=== PATIENT | female | born 1960 | race Caucasian/White ===

== ENCOUNTER 2016-05-02 13:08 | Inpatient (IN) | payer OTHER ==
[~2016-05-02] VITALS: Ht 162.6 cm; Wt 118.9 kg
[~2016-05-02 13:08] MED LIST: CETI10 PO; HYDR-3288 PO; LOSA25TA PO; LOVA40TA PO; METF850T PO; ROPI0.5T PO; TRIA37.5 PO; ZOLO50TA PO
[2016-05-04] MEDS ORDERED: VITA1000 PO (10:51)
[2016-05-04] MEDS ORDERED: HYDR-3583 PO (10:51)
[2016-05-04] MEDS ORDERED: MIRA25TA PO (11:02)
[2016-05-04] MEDS ORDERED: METR0.752 TOPICAL (11:02)
[2016-05-04] MEDS ORDERED: FLUT1SPR5 EACH NARE (11:02)
[2016-05-04] MEDS ORDERED: MONT10TA4 PO (11:02)
[2016-05-04] MEDS ORDERED: OMEP20TA PO (11:02)
[2016-05-04] MEDS ORDERED: BACTOIN EACH NARE (11:02)
[2016-05-07] MEDS ORDERED: METOPROLOL TARTRATE 25 MG TAB PO PRN (05:30)
[2016-05-07] MEDS ORDERED: LACTATED RINGER'S 1000 ML IV SCH (05:30)
[2016-05-07] MEDS ORDERED: SODIUM CHLORID 0.9% 500 ML IV SCH (05:30)
[2016-05-07] MEDS ORDERED: INSULIN HUMAN REGULAR 1,000 UNITS/10 ML VIAL SQ PRN (05:30)
[2016-05-07] MEDS ORDERED: ROPIVACAINE PERI-ARTICULAR INJECTION. PERIART SCH ×5 (05:45)
[2016-05-07] MEDS ORDERED: VANCOMYCIN 1000 MG/NS 250 ML (for <70 kg) IV SCH ×2 (05:45)
[2016-05-07] MEDS ORDERED: SODIUM CHLORIDE 0.9% IV SCH (05:45)
[2016-05-07] MEDS ORDERED: EXPAREL PERI-ARTICULAR INJECTION (TOTAL VOL. 60 ML) P-ARTICULR SCH ×2 (05:45)
[2016-05-07] MEDS ORDERED: TRANEXAMIC ACID IV SCH (05:45)
[2016-05-07] MEDS: POVIDONE IODINE 7.5% SCRUB 118 ML BOTTLE TOP SCH (05:45)
[2016-05-07] MEDS ORDERED: TRANEXAMIC PERI-ARTICULAR 3,000 MG/NS 100 ML P-ARTICULR SCH ×2 (05:45)
[2016-05-07] MEDS: CHLORHEXIDINE GLUCONATE 4% SOLN 120 ML BTL TOP SCH (05:45)
[2016-05-07] MEDS ORDERED: DEXAMETHASONE SOD PHOS 20 MG/5 ML VIAL IV PUSH SCH (05:45)
[2016-05-07] MEDS ORDERED: ceFAZolin 2 GM PREMIX 50 ML IV SCH (05:45)
[2016-05-07 05:54] VITALS: BP 109/59; PULSE 58; RESP 16; TEMP 97.5; O2SAT 98
[2016-05-07] MEDS ORDERED: MIDAZOLAM HCL 5 MG/5 ML VIAL ONE (06:32)
[2016-05-07] MEDS ORDERED: FAMOTIDINE 20 MG/2 ML VIAL ONE (06:42)
[2016-05-07] MEDS ORDERED: METOCLOPRAMIDE HCL 10 MG/2 ML VIAL ONE (06:43)
[2016-05-07] MEDS ORDERED: ACETAMINOPHEN 1000 MG/100 ML VIAL IV ONE (06:51)
[2016-05-07] MEDS ORDERED: fentaNYL CITRATE 250 MCG/5 ML AMP ONE (06:51)
[2016-05-07] MEDS ORDERED: HYDR-3288 PO (06:59)
[2016-05-07] MEDS ORDERED: ENOX40P SQ (06:59)
[2016-05-07] MEDS ORDERED: ALUMINUM/MAGNESIUM/SIMETH 30 ML CUP PO PRN (07:00)
[2016-05-07] MEDS ORDERED: ACETAMINOPHEN/HYDROcodone 325 MG/7.5 MG TAB PO PRN ×2 (07:00)
[2016-05-07] MEDS ORDERED: Post-op Orders (for Pharmacy) MISC XX ONE (07:00)
[2016-05-07] MEDS ORDERED: diphenhydrAMINE HCL 50 MG/ML VIAL IV PRN (07:00)
[2016-05-07] MEDS ORDERED: MORPHINE SULFATE 4 MG/ML INJ IV PUSH PRN (07:00)
[2016-05-07] MEDS ORDERED: ZOLPIDEM TARTRATE 5 MG TAB PO PRN (07:00)
[2016-05-07] MEDS ORDERED: NALOXONE HCL 0.4 MG/ML AMP IV PRN (07:00)
[2016-05-07] MEDS ORDERED: MAGNESIUM HYDROXIDE SUSP 30 ML CUP PO PRN (07:00)
[2016-05-07] MEDS ORDERED: BISACODYL 10 MG SUPP PR PRN (07:00)
[2016-05-07] MEDS ORDERED: ASPI81CH37 CHEW (07:01)
[2016-05-07] MEDS ORDERED: GENTAMICIN SULFATE 80 MG/2 ML VIAL IRRIGATION ONE (07:44)
[2016-05-07] MEDS ORDERED: BUPIVACAINE LIPOSOME PF 1.3% 20 ML VIAL ONE (07:50)
[2016-05-07] MEDS: TRIAMTERENE/HCTZ 37.5 MG/25 MG TAB PO SCH (09:00)
[2016-05-07] MEDS ORDERED: DO NOT ADM ANY ANTICOAGULANT DRUGS XX PRN (09:02)
[2016-05-07] MEDS ORDERED: *morphine SULFATE 8 MG/ML PERIprocedure ONLY ONE ×2 (09:17→09:55)
[2016-05-07] MEDS ORDERED: *MEPERIDINE 25 MG INJ VIAL PERIprocedural Use ONLY ONE (09:19)
[2016-05-07] MEDS ORDERED: SODIUM CHLORIDE 0.9% FLUSH 10 ML FLUSH IV FLUSH PRN (09:30)
[2016-05-07] MEDS: metFORMIN HCL 850 MG TAB PO SCH ×2 (09:35→11:09)
[2016-05-07] MEDS: SODIUM CHLOR 0.9% 1000 ML INJ 1,000 ML IV SCH ×2 (09:40→22:38)
--- NOTE | 2016-05-07 09:54 | RADRPT ---
EXAM DATE/TIME: 05/07/2016 09:27 [place] COMPARISON: No previous studies available for comparison. INDICATIONS : Post op right total knee. MEDICAL HISTORY : Unobtainable. SURGICAL HISTORY : Unobtainable. ENCOUNTER: Initial ACUITY: 1 day PAIN SCORE: Non-responsive. LOCATION: Right knee. FINDINGS: AP and lateral views of the knee following arthroplasty reveals a prosthesis in anatomic alignment. F racture is not appreciated. Surgical drain is evident CONCLUSION: Status post total knee arthroplasty. Bryson Self MD FACR Board Certified Radiologist. This report was verified electronically.
[2016-05-07] MEDS: PANTOPRAZOLE SOD 20 MG DELAYED RELEASE TAB PO SCH (10:00)
[2016-05-07] MEDS: TOLTERODINE TARTRATE 2 MG CAP LA PO SCH (10:00)
[2016-05-07] MEDS: SODIUM CHLORIDE 0.9% FLUSH 10 ML FLUSH IV FLUSH SCH ×2 (10:00→22:37)
[2016-05-07 10:54] VITALS: BP 155/99; PULSE 56; RESP 18; TEMP 95.9; O2SAT 99
[2016-05-07] MEDS: LOSARTAN 25 MG TAB PO SCH (11:09)
[2016-05-07] MEDS: SERTRALINE HCL 50 MG TAB PO SCH (11:09)
[2016-05-07 15:03] VITALS: BP 138/66; PULSE 73; RESP 18; TEMP 98.2; O2SAT 100
[2016-05-07] MEDS ORDERED: PROPOFOL 200 MG/20 ML AMP IV ONE (15:11)
[2016-05-07] MEDS ORDERED: ONDANSETRON HCL 4 MG/2 ML VIAL IV PUSH ONE (15:11)
[2016-05-07] MEDS ORDERED: NEOSTIGMINE 3 MG/3 ML SYR IV ONE (15:11)
[2016-05-07] MEDS ORDERED: LACTATED RINGER'S 1000 ML INJ 1,000 ML IV ONE (15:12)
[2016-05-07] MEDS: oxyCODONE/ACETAMINOPHEN 10 MG/325 MG TAB PO PRN ×2 (15:36→22:32)
[2016-05-07 20:30] VITALS: BP 142/67; PULSE 66; RESP 17; TEMP 98; O2SAT 96
[2016-05-08] VITALS: BP 125/67; PULSE 67; RESP 17; TEMP 98.4; O2SAT 96
[2016-05-08 04:00] VITALS: BP 106/55; PULSE 60; RESP 17; TEMP 97.2; O2SAT 97
[2016-05-08] MEDS: CHLORHEXIDINE GLUCONATE 4% SOLN 120 ML BTL TOP SCH (05:45)
[2016-05-08] MEDS: POVIDONE IODINE 7.5% SCRUB 118 ML BOTTLE TOP SCH (05:45)
[2016-05-08 06:09] LABS: HEMATOCRIT 28.1 % (35.0-46.0); MEAN CELL VOLUME 86.6 FL (80.0-100.0); MEAN CORPUSCULAR HEMOGLOBIN 28.2 PG (27.0-34.0); MEAN CORPUSCULAR HGB CONC 32.6 % (32.0-36.0); PLATELET COUNT 242 TH/MM3 (150-450); RED BLOOD COUNT 3.25 MIL/MM3 (4.00-5.30); RED CELL DISTRIBUTION WIDTH 14.1 % (11.6-17.2); REVIEW FLAG FINAL; WHITE BLOOD COUNT 11.7 TH/MM3 (4.0-11.0)
[2016-05-08 06:36] LABS: BICARBONATE 28.1 MEQ/L (21.0-32.0); POTASSIUM 3.8 MEQ/L (3.5-5.1)
[2016-05-08] MEDS: PANTOPRAZOLE SOD 20 MG DELAYED RELEASE TAB PO SCH (07:02)
[2016-05-08] MEDS: ENOXAPARIN SODIUM 40 MG/0.4 ML SYRINGE SQ SCH (07:02)
[2016-05-08] MEDS: TRIAMTERENE/HCTZ 37.5 MG/25 MG TAB PO SCH (07:02)
[2016-05-08] MEDS: LOSARTAN 25 MG TAB PO SCH (07:02)
[2016-05-08] MEDS: TOLTERODINE TARTRATE 2 MG CAP LA PO SCH (07:02)
[2016-05-08] MEDS: metFORMIN HCL 850 MG TAB PO SCH ×2 (07:02→18:00)
[2016-05-08] MEDS: SERTRALINE HCL 50 MG TAB PO SCH (07:03)
[2016-05-08] MEDS: SODIUM CHLORIDE 0.9% FLUSH 10 ML FLUSH IV FLUSH SCH ×2 (07:03→21:00)
[2016-05-08] MEDS: oxyCODONE/ACETAMINOPHEN 10 MG/325 MG TAB PO PRN ×4 (07:04→20:52)
[2016-05-08 08:00] VITALS: BP 126/58; PULSE 55; RESP 20; TEMP 97.8; O2SAT 93
--- NOTE | 2016-05-08 08:24 | PD.ORT.PN ---
Subjective Post Op Day #: 1 Subjective Remarks pain in knee. difficulty moving leg. did not do much in PT yesterday. Objective Vitals Vital Signs Date Time Temp Pulse Resp B/P Pulse Ox O2 Delivery O2 Flow Rate FiO2 05/08/16 04:00 97.2 60 17 106/55 97 05/08/16 00:00 98.4 67 17 125/67 96 05/07/16 20:30 98.0 66 17 142/67 96 05/07/16 15:03 98.2 73 18 138/66 100 05/07/16 10:54 95.9 56 18 155/99 99 05/07/16 10:15 97.5 66 16 151/77 93 Nasal Cannula 3.5 05/07/16 10:00 61 16 151/69 98 Nasal Cannula 3.5 05/07/16 09:45 51 15 144/76 99 Nasal Cannula 3.5 05/07/16 09:30 59 15 152/74 97 Simple Mask 6 05/07/16 09:20 14 89 Simple Mask 6 05/07/16 09:15 57 15 159/72 97 Nasal Cannula 4 05/07/16 09:07 97.6 58 15 164/81 96 Simple Mask 6 I/O 05/07/16 05/07/16 05/07/16 05/08/16 05/08/16 05/08/16 07:00 15:00 23:00 07:00 15:00 23:00 Intake Total 2120 ml 240 ml 240 ml Output Total 1225 ml 950 ml 1400 ml Balance 895 ml -710 ml -1160 ml Intake Oral 720 ml 240 ml 240 ml IV Total 200 ml Other 1200 ml Output Urine Total 1175 ml 950 ml 1400 ml Estimated Blood Loss 50 ml # Voids 0 # Bowel Movements 0 0 0 Result Diagram: 05/08/16 0530 05/08/16 0530 Objective Remarks in bed, nad dressing c/d/i neg homans nvi Assessment & Plan Ortho Post Op Day #: 1 Problem List: Assessment and Plan s/p R TKA wbat daily dressing changes lovenox d/c planning home with [facility] and pt rx in chart f/up dr. olson 2 weeks Haile Sandoval May 08, 2016 08:24
--- NOTE | 2016-05-08 08:26 | HHI.DCPOC ---
Discharge Care Plan Diagnosis: (1) Primary localized osteoarthrosis, lower leg Your Health Problems Are: Difficulty with ADL Goals to Promote Your Health * To prevent worsening of your condition and complications * To maintain your health at the optimal level Directions to Meet Your Goals Take your medications as prescribed Follow your dietary instruction Follow activity as directed Keep your appointments as scheduled Take your immunizations and boosters as scheduled If your symptoms worsen call your PCP, if no PCP go to Urgent Care Center or Emergency Room Smoking is Dangerous to Your Health. Avoid second hand smoke Call the 24-hour hour crisis hotline for domestic abuse at Haile Sandoval May 08, 2016 08:26
--- NOTE | 2016-05-08 08:27 | HHI.FF ---
Face to Face Verification Diagnosis: (1) Primary localized osteoarthrosis, lower leg Physical Therapy Gait training, Safety evaluation, Transfer training, bed to chair Knee: Total knee, Protocol: Right, Full weight bearing Right LE Weight Bearing: WB as tolerated Nursing RN: 3 days/week x 2 weeks Nursing: Lul teaching, Dressing changes Dressing Changes: Daily dressing change I have seen patient Magdalena Fenton on 05/08/16. My clinical findings support the need for the requested home health care services because: Limited ability to care for self High risk of falls I certify that my clinical findings support that this patient is homebound because: Post-op weakness Unsteady gait/balance Haile Sandoval May 08, 2016 08:27
[2016-05-08] MEDS ORDERED: WALKER WHEELS/F1 MIS (08:28)
[2016-05-08] MEDS ORDERED: CPMMACHINE (08:28)
[2016-05-08] MEDS ORDERED: COMMODE 3-IN-11 MIS (08:28)
--- NOTE | 2016-05-08 10:02 | PD.CONS ---
HPI Service [facility] Hospitalists Consult Requested By Dr. Haile Gottlieb Reason for Consult Medical management Primary Care Physician Dr. Ricardo Pace Diagnoses: History of Present Illness Ms. Fenton is a pleasant 55 y/o female with HTN, hyperlipidemia, diabetes mellitus and osteoarthritis. Pt was admitted on 05/07/16 for right total knee arthroplasty with Dr. Haile Gottlieb. The [facility] Hospitalist team was consulted to help with medical management of the pts chronic medical issues. She is seen post-operatively and complains only of right knee pain. Her vital signs have been stable. No reported nausea/vomiting, abd pain, chest pain or palpitations. Review of Systems Constitutional: DENIES: Fever Ears, nose, mouth, throat: DENIES: Throat pain Respiratory: DENIES: Cough, Shortness of breath Cardiovascular: DENIES: Chest pain, Lower Extremity Edema Gastrointestinal: DENIES: Abdominal pain, Nausea, Vomiting Musculoskeletal: COMPLAINS OF: Joint pain Integumentary: DENIES: Rash Neurologic: DENIES: Headache Past Family Social History Past Medical History Chronic back pain, DJD Osteoarthritis Diabetes mellitus HTN Hyperlipidemia Depression BRANDI Cataracts Urinary incontinence Past Surgical History Partial hysterectomy Reported Medications -Flonase Nasal [place] 50 Mcg EACH NARE BID -Omeprazole 20 Mg PO DAILY -Montelukast 10 Mg PO HS -Hydrocodone-Acetaminophen 10-325 mg PO Q4H PRN -Losartan 25 Mg PO DAILY -Cetirizine 10 Mg PO DAILY -Ropinirole 0.5 Mg Tab 3 Mg PO DAILY -Triamterene-Hydrochlorothiazide 37.5-25 Mg PO DAILY -Metformin 850 Mg PO BIDPC -Zoloft 50 Mg PO DAILY -Metronidazole Topical 0.75 % Cream 1 Applic TOPICAL BID -Lovastatin 40 Mg PO DAILY Bactroban Nasal Oint (Mupirocin Nasal Oint) 2% Oint 1 Applic EACH NARE BID For 5 days. Myrbetriq (Mirabegron) 25 Mg Tab 25 Mg PO DAILY Vitamin D-1000 (Cholecalciferol) 1,000 Unit Tab 1,000 Units PO DAILY Allergies: Coded Allergies: No Known Allergies (Verified , 05/07/16) Family History Noncontributory Social History Denies any tobacco or illicit drug use Social alcohol use Pt has two children Physical Exam Vital Signs Vital Signs Date Time Temp Pulse Resp B/P Pulse Ox O2 Delivery O2 Flow Rate FiO2 05/08/16 04:00 97.2 60 17 106/55 97 05/08/16 00:00 98.4 67 17 125/67 96 05/07/16 20:30 98.0 66 17 142/67 96 05/07/16 15:03 98.2 73 18 138/66 100 05/07/16 10:54 95.9 56 18 155/99 99 05/07/16 10:15 97.5 66 16 151/77 93 Nasal Cannula 3.5 05/07/16 10:00 61 16 151/69 98 Nasal Cannula 3.5 05/07/16 09:45 51 15 144/76 99 Nasal Cannula 3.5 Physical Exam GENERAL: This is a well-nourished, well-developed patient, in no apparent distress. HEENT: Atraumatic. Normocephalic. No temporal or scalp tenderness. No scleral icterus. Airway patent. NECK: Trachea midline, supple, nontender. CARDIO: Regular. RESP: CTA bilaterally. No wheezes, rales, or rhonchi. ABD: +BS, soft, non-tender, nondistended. EXT: NEURO: Awake and alert. Motor and sensory grossly within normal limits. Normal speech. Laboratory Laboratory Tests Test 05/08/16 05:30 White Blood Count 11.7 Red Blood Count 3.25 Hemoglobin 9.2 Hematocrit 28.1 Mean Corpuscular Volume 86.6 Mean Corpuscular Hemoglobin 28.2 Mean Corpuscular Hemoglobin 32.6 Concent Red Cell Distribution Width 14.1 Platelet Count 242 Mean Platelet Volume 9.5 Sodium Level 143 Potassium Level 3.8 Chloride Level 108 Carbon Dioxide Level 28.1 Anion Gap 7 Blood Urea Nitrogen 11 Creatinine 0.70 Estimat Glomerular Filtration 87 Rate Random Glucose 146 Calcium Level 8.3 Result Diagram: 05/08/16 0530 05/08/16 0530 Imaging Last Impressions Knee X-Ray 05/07/16 0655 Signed Impressions: Service Date/Time: Saturday, May 07, 2016 09:27 - CONCLUSION: Status post total knee arthroplasty. Bryson Self MD Assessment and Plan Problem List: (1) Primary localized osteoarthrosis, lower leg Status: Chronic Plan: - Pt is s/p right total knee arthroplasty with Dr. Haile Gottlieb on 05/07/16 - Post-op pain control per Ortho - IS - PT - Constipation precautions - DVT prophylaxis with Lovenox - Pt is planned for home with HHC/PT upon discharge. (2) HTN (hypertension) Status: Chronic Plan: - Home meds continued (3) DM (diabetes mellitus) Status: Chronic Plan: - OHA continued - Accu checks (4) Hyperlipidemia Status: Chronic Plan: - Home meds continued Assessment and Plan Patient examined. Assessment and plan formulated with Alka Garay PA-C. I agree with the above. Problem Qualifiers (1) Primary localized osteoarthrosis, lower leg: Qualified Code: M17.11 - Primary localized osteoarthrosis, lower leg, right (2) DM (diabetes mellitus): Alka Garay May 08, 2016 10:02 Darien Montiel DO May 10, 2016 13:59
[2016-05-08 12:00] VITALS: BP 137/66; PULSE 63; RESP 22; TEMP 98.2; O2SAT 96
[2016-05-08] MEDS: MORPHINE SULFATE 4 MG/ML INJ IV PUSH PRN (12:35)
[2016-05-08 16:16] VITALS: BP 125/59; PULSE 86; RESP 20; TEMP 96.7
[2016-05-08] MEDS: VANCOMYCIN 1,000 MG/NS 250 ML IV SCH ×2 (18:00)
[2016-05-08 19:38] VITALS: BP_SYST 126; BP_SYST 129; BP_DIAS 63; BP_DIAS 68; PULSE 64; PULSE 83; RESP 16; TEMP 98.6; TEMP 99.1; O2SAT 100
[2016-05-08] MEDS: MULTIVITAMINS/MINERALS THERAPEUTIC TAB PO SCH (21:45)
[2016-05-08] MEDS: DOCUSATE SODIUM 100 MG CAP PO SCH (21:45)
[2016-05-08] MEDS: DOXYCYCLINE HYCLATE 100 MG CAP PO SCH (21:45)
[2016-05-09] VITALS: BP_SYST 108; BP_SYST 143; BP_DIAS 62; BP_DIAS 79; PULSE 69; PULSE 76; RESP 20; TEMP 97.2; TEMP 99.1; O2SAT 94; O2SAT 97
[2016-05-09] MEDS: oxyCODONE/ACETAMINOPHEN 10 MG/325 MG TAB PO PRN ×5 (01:23→22:21)
[2016-05-09] MEDS: SODIUM CHLOR 0.9% 1000 ML INJ 1,000 ML IV SCH ×3 (02:00→20:40)
[2016-05-09] MEDS: MORPHINE SULFATE 4 MG/ML INJ IV PUSH PRN (03:56)
[2016-05-09] MEDS: VANCOMYCIN 1,000 MG/NS 250 ML IV SCH ×4 (04:41→17:38)
[2016-05-09 05:21] LABS: BICARBONATE 30.1 MEQ/L (21.0-32.0); POTASSIUM 3.6 MEQ/L (3.5-5.1)
[2016-05-09 05:30] LABS: MEAN CORPUSCULAR HEMOGLOBIN 28.1 PG (27.0-34.0); MEAN CORPUSCULAR HGB CONC 32.4 % (32.0-36.0); PLATELET COUNT 236 TH/MM3 (150-450); RED BLOOD COUNT 3.44 MIL/MM3 (4.00-5.30); RED CELL DISTRIBUTION WIDTH 14.2 % (11.6-17.2); REVIEW FLAG FINAL; WHITE BLOOD COUNT 9.2 TH/MM3 (4.0-11.0)
[2016-05-09] MEDS: CHLORHEXIDINE GLUCONATE 4% SOLN 120 ML BTL TOP SCH (05:45)
[2016-05-09] MEDS: POVIDONE IODINE 7.5% SCRUB 118 ML BOTTLE TOP SCH (05:45)
[2016-05-09 08:00] VITALS: BP 96/51; PULSE 75; RESP 18; TEMP 98.3; O2SAT 92
--- NOTE | 2016-05-09 08:38 | PD.ORT.PN ---
Subjective Post Op Day #: 2 Subjective Remarks pain in knee. slightly better today. Objective Vitals Vital Signs Date Time Temp Pulse Resp B/P Pulse Ox O2 Delivery O2 Flow Rate FiO2 05/09/16 08:00 98.3 75 18 96/51 92 05/09/16 04:46 20 05/09/16 02:23 18 05/09/16 00:00 99.1 69 20 143/79 97 05/08/16 19:38 98.6 83 16 129/63 100 05/08/16 16:16 96.7 86 20 125/59 05/08/16 12:00 98.2 63 22 137/66 96 I/O 05/08/16 05/08/16 05/08/16 05/09/16 05/09/16 05/09/16 07:00 15:00 23:00 07:00 15:00 23:00 Intake Total 240 ml 720 ml 0 ml Output Total 1400 ml Balance -1160 ml 720 ml 0 ml Intake Oral 240 ml 720 ml 0 ml IV Total 0 ml Output Urine Total 1400 ml # Voids 2 2 # Bowel Movements 0 Result Diagram: 05/09/1641105/09/16411 Objective Remarks in bed, nad, using cpm incision no erythema, no drainage neg homans nvi Assessment & Plan Ortho Post Op Day #: 2 Problem List: Assessment and Plan s/p R TKA wbat daily dressing changes lovenox received call yesterday afternoon from patient's roller painter. apparently patient had cultures taken from vaginal sores last /Sat. We were not informed of this prior to patient's sx for R TKA on Saturday. cultures growing MRSA. started IV Vanco and will continue until d/c. after d/c patient will need PO doxycycline and/or Bactrim DS. d/c planning home with hhc and pt rx in chart f/up dr. olson 2 weeks Haile Sandoval May 09, 2016 08:38
[2016-05-09] MEDS: SODIUM CHLORIDE 0.9% FLUSH 10 ML FLUSH IV FLUSH SCH ×2 (09:00→22:32)
[2016-05-09] MEDS: LOSARTAN 25 MG TAB PO SCH (09:00)
--- NOTE | 2016-05-09 09:01 | MP ---
cc: ALLI GUNDERSON DATE OF SURGERY: 05/07/2016 PREOPERATIVE DIAGNOSIS Right knee osteoarthritis. POSTOPERATIVE DIAGNOSIS Right knee osteoarthritis. PROCEDURE Right total knee arthroplasty. SURGEON Dr. Alli Gunderson INDUSTRIAL ENERGY ENGINEER Alli Sandoval PA-C ANESTHESIA General with an adductor canal block. ESTIMATED BLOOD LOSS 50 cc. COMPLICATIONS None. IMPLANTS USED DePuy Corail size 5 posterior stabilized femoral component, size 5 rotating platform tibia baseplate, size 5 polyethylene tibial insert, size 35 mm patella. JUSTIFICATION The patient is a 55-year-old female with a history of severe end-stage osteoarthritis involving the right knee. She has severe disabling pain with standing, walking, ambulation, weightbearing activities, even severe pain at rest. She has failed greater than three months of nonoperative conservative treatment to include medication therapy, injections, ambulatory assisted aids, home exercise program, activity modification and weight loss attempts. X-rays of the right knee reveal severe end-stage osteoarthritis with [id number] joint space narrowing, subchondral sclerosis, subchondral cysts, osteophyte formation and varus deformity. The patient was counseled on the risks, benefits and alternatives to a total knee arthroplasty. The risks of surgery include but are not limited to anesthesia, infection, bleeding, damage to nerves and blood vessels, pain, stiffness, failure of components, blood clots, pulmonary embolism and even . The patient's pain is severe. She favored the benefits over the risks and did wish to proceed with surgery. PROCEDURE IN DETAIL Written consent was obtained. The patient was identified by name, taken to the operating room and placed supine on the operating table. General anesthesia was administered as well as two grams of IV Ancef and one gram of IV vancomycin. A well-padded tourniquet was placed on the right thigh. The right lower extremity was prepped and draped using isopropyl alcohol, Hibiclens solution and ChloraPrep solution. After a timeout was performed an Esmarch bandage was used to exsanguinate the right lower extremity and tourniquet was inflated to 250 mmHg. A longitudinal incision was made over the anterior aspect of the right knee and medial parapatellar arthrotomy was performed. The patella was everted. A patellar resection guide was used to resect 9 mm of patella. The size 35 mm guide was placed. Three drill holes were placed. The 35 mm trial fit well. Attention was turned to the femur where an intramedullary guide javad was placed. The distal femoral cutting guide was set to remove 10 mm of distal femur 5 degrees off the anatomic valgus axis alignment. An oscillating saw was used to perform the distal femoral cut. Attention was turned to the tibia where an extramedullary tibia guide was used to resect 5 mm off the lowest portion of the medial tibial plateau. The tibial guide was pinned in place and tibia cut was performed. A 5 mm spacer block showed full extension. Attention was turned back to the femur where the AP sizing block measured a size 5. The anterior reference 3 degree external rotation guide was used to pin a size [address] The anterior, posterior and chamfer cuts were performed. A size 5 PCL box guide was pinned in place. The PCL was box cut with the oscillating saw. Medial and lateral meniscus remnants were removed as well as bone and soft tissue debris from the posterior portion of the knee. A size 5 tibia baseplate was pinned in place. The tibia was drilled and punched. Trial components were evaluated and final components cemented in place. With the 5 mm tibial insert the leg could achieve full extension to 0 degrees and flexion to 140. No evidence of tibial lift-off. Varus-valgus balance appeared appropriate and symmetric. The patella was noted to track centrally. With the tourniquet deflated Bovie cautery was used for hemostasis. The surgical wound was thoroughly irrigated with sterile saline pulse lavage antibiotic-impregnated solution. The arthrotomy incision was closed with #1 Vicryl suture. The subcutaneous layer was closed with 2-0 Vicryl suture. Skin was closed with Dermabond. Sterile dressings were applied. The patient tolerated the procedure well with no intraoperative complications noted. Alli Sandoval, physician college sports assistant certified, was present during the entire procedure to include patient positioning and the procedure itself. The medical necessity of a physician college sports assistant was indicated in this case due to the complexity of the procedure. He assisted with appropriate manipulation of the leg and also retraction of muscle, tendon, bone and neurovascular structures. He assisted with preparation of bone cuts and also implantation of the prosthetic replacement. MD ERIN Bridges/SHAWANDA /8:49 AM /8:31 AM
[2016-05-09] MEDS: PANTOPRAZOLE SOD 20 MG DELAYED RELEASE TAB PO SCH (09:36)
[2016-05-09] MEDS: DOXYCYCLINE HYCLATE 100 MG CAP PO SCH ×2 (09:36→20:30)
[2016-05-09] MEDS: TOLTERODINE TARTRATE 2 MG CAP LA PO SCH (09:36)
[2016-05-09] MEDS: metFORMIN HCL 850 MG TAB PO SCH ×2 (09:36→17:38)
[2016-05-09] MEDS: TRIAMTERENE/HCTZ 37.5 MG/25 MG TAB PO SCH (09:36)
[2016-05-09] MEDS: SERTRALINE HCL 50 MG TAB PO SCH (09:37)
[2016-05-09] MEDS: DOCUSATE SODIUM 100 MG CAP PO SCH ×2 (09:37→20:31)
[2016-05-09] MEDS: MULTIVITAMINS/MINERALS THERAPEUTIC TAB PO SCH ×2 (09:37→20:30)
[2016-05-09] MEDS: ENOXAPARIN SODIUM 40 MG/0.4 ML SYRINGE SQ SCH (09:39)
[2016-05-09 12:00] VITALS: BP 112/58; PULSE 68; RESP 17; TEMP 96.7; O2SAT 94
[2016-05-09 16:00] VITALS: BP 107/60; PULSE 78; RESP 17; TEMP 97.3; O2SAT 95
[2016-05-09 20:00] VITALS: BP 104/55; PULSE 71; RESP 20; TEMP 98.8; O2SAT 93
[2016-05-09] MEDS: ONDANSETRON HCL 4 MG/2 ML VIAL IVP PRN (20:27)
[2016-05-10] MEDS: oxyCODONE/ACETAMINOPHEN 10 MG/325 MG TAB PO PRN ×2 (03:05→08:25)
[2016-05-10] MEDS: ONDANSETRON HCL 4 MG/2 ML VIAL IVP PRN (03:07)
[2016-05-10] MEDS: VANCOMYCIN 1,000 MG/NS 250 ML IV SCH ×2 (05:26)
[2016-05-10 05:34] LABS: HEMATOCRIT 30.6 % (35.0-46.0); MEAN CELL VOLUME 86.8 FL (80.0-100.0); MEAN CORPUSCULAR HEMOGLOBIN 27.7 PG (27.0-34.0); MEAN CORPUSCULAR HGB CONC 31.9 % (32.0-36.0); PLATELET COUNT 254 TH/MM3 (150-450); RED BLOOD COUNT 3.52 MIL/MM3 (4.00-5.30); RED CELL DISTRIBUTION WIDTH 14.3 % (11.6-17.2); REVIEW FLAG FINAL; WHITE BLOOD COUNT 7.7 TH/MM3 (4.0-11.0)
[2016-05-10 05:49] LABS: BICARBONATE 31.8 MEQ/L (21.0-32.0); POTASSIUM 3.7 MEQ/L (3.5-5.1)
[2016-05-10] MEDS ORDERED: DOXY100C PO (07:57)
[2016-05-10 08:00] VITALS: BP 109/64; PULSE 74; RESP 18; TEMP 98.9; O2SAT 95
[2016-05-10] MEDS: SODIUM CHLOR 0.9% 1000 ML INJ 1,000 ML IV SCH (08:00)
--- NOTE | 2016-05-10 08:10 | PD.ORT.PN ---
Subjective Post Op Day #: 3 Subjective Remarks pain tolerable. continues to improve. Objective Vitals Vital Signs Date Time Temp Pulse Resp B/P Pulse Ox O2 Delivery O2 Flow Rate FiO2 05/10/16 04:50 20 05/09/16 20:00 98.8 71 20 104/55 93 05/09/16 16:00 97.3 78 17 107/60 95 05/09/16 12:00 96.7 68 17 112/58 94 I/O 05/09/16 05/09/16 05/09/16 05/10/16 05/10/16 05/10/16 07:00 15:00 23:00 07:00 15:00 23:00 Intake Total 240 ml 480 ml 500 ml 240 ml Output Total 600 ml 700 ml 550 ml Balance -360 ml -220 ml 500 ml -310 ml Intake Oral 240 ml 480 ml 240 ml IV Total 0 ml 500 ml Output Urine Total 600 ml 700 ml 550 ml # Voids 2 # Bowel Movements 0 0 0 Result Diagram: 05/10/16 0438 05/10/16 0438 Objective Remarks in bed, nad swelling as expected incision no erythema, no drainage neg homans nvi Assessment & Plan Ortho Post Op Day #: 3 Problem List: Assessment and Plan s/p R TKA wbat daily dressing changes lovenox received call Saturday from patient's senior java web application developer. apparently patient had cultures taken from vaginal sores last /Sat. We were not informed of this prior to patient's sx for R TKA on Saturday. cultures growing MRSA. started IV Vanco and will continue until d/c. complete dose of IV vanco this am then cleared for d/c. will d/c on Bactrim DS and Doxycycline. d/c planning home with hhc and pt - cleared for today rx in chart f/up dr. olson 2 weeks Haile Sandoval May 10, 2016 08:10
[2016-05-10] MEDS ORDERED: BACT800T5 PO (08:11)
[2016-05-10] MEDS: ENOXAPARIN SODIUM 40 MG/0.4 ML SYRINGE SQ SCH (08:23)
[2016-05-10] MEDS: TOLTERODINE TARTRATE 2 MG CAP LA PO SCH (08:24)
[2016-05-10] MEDS: DOCUSATE SODIUM 100 MG CAP PO SCH (08:24)
[2016-05-10] MEDS: SODIUM CHLORIDE 0.9% FLUSH 10 ML FLUSH IV FLUSH SCH (08:24)
[2016-05-10] MEDS: PANTOPRAZOLE SOD 20 MG DELAYED RELEASE TAB PO SCH (08:24)
[2016-05-10] MEDS: LOSARTAN 25 MG TAB PO SCH (08:25)
[2016-05-10] MEDS: DOXYCYCLINE HYCLATE 100 MG CAP PO SCH (08:25)
[2016-05-10] MEDS: MULTIVITAMINS/MINERALS THERAPEUTIC TAB PO SCH (08:25)
[2016-05-10] MEDS: SERTRALINE HCL 50 MG TAB PO SCH (08:25)
[2016-05-10] MEDS: metFORMIN HCL 850 MG TAB PO SCH (08:25)
[2016-05-10] MEDS: TRIAMTERENE/HCTZ 37.5 MG/25 MG TAB PO SCH (08:26)
--- NOTE | 2016-05-10 14:04 | HHI.PR ---
Subjective Remarks No new complaints. Pt is eager for discharge to home. Objective Vitals Vital Signs Date Time Temp Pulse Resp B/P Pulse Ox O2 Delivery O2 Flow Rate FiO2 05/10/16 08:00 98.9 74 18 109/64 95 05/10/16 04:50 20 05/09/16 20:00 98.8 71 20 104/55 93 05/09/16 16:00 97.3 78 17 107/60 95 05/09/16 05/09/16 05/10/16 15:00 23:00 07:00 Intake Total 480 ml 500 ml 240 ml Output Total 700 ml 550 ml Balance -220 ml 500 ml -310 ml Intake Oral 480 ml 240 ml IV Total 500 ml Output Urine Total 700 ml 550 ml # Bowel Movements 0 0 Result Diagram: 05/10/1643705/10/16437 Imaging Last Impressions Knee X-Ray 05/07/16 0655 Signed Impressions: Service Date/Time: Saturday, May 07, 2016 09:27 - CONCLUSION: Status post total knee arthroplasty. Bryson Self MD Objective Remarks GENERAL: This is a well-nourished, well-developed patient, in no apparent distress. CARDIOVASCULAR: Regular rate and rhythm without murmurs, gallops, or rubs. RESPIRATORY: Clear to auscultation. Breath sounds equal bilaterally. No wheezes , rales, or rhonchi. GASTROINTESTINAL: Abdomen soft, non-tender, nondistended. Normal active bowel sounds MUSCULOSKELETAL: Extremities without clubbing, cyanosis, or edema. NEURO: Alert & Oriented x4 to person, place, time, situation. Moves all ext x4 A/P Problem List: (1) Primary localized osteoarthrosis, lower leg Status: Chronic Plan: - Pt is s/p right total knee arthroplasty with Dr. Haile Gottlieb on 05/07/16 - Post-op pain control per Ortho - IS - PT - Constipation precautions - DVT prophylaxis with Lovenox - Pt is planned for home with HHC/PT upon discharge. - Pt discharged to home today by Orthopedic service. I agree with discharge. (2) MRSA (methicillin resistant staph aureus) culture positive Status: Acute Plan: - per pt, she had a recent infection on her labia and saw her CIRCUS TRAINER, Dr. Ann. - Pt reports that a culture was performed and she was contacted by Dr. Barajas' s & told that culture showed MRSA - pt started on doxycycline - nasal swab was negative for MRSA - pt states that Dr. Barajas has called in a prescription for her which is waiting at the pharmacy for her to garbage pick up worker today. - Therefore, I will defer this matter and its treatment to her metal ceiling builder, Dr. Ann - Pt should f/u with Dr. Joyner in 1 week. (3) HTN (hypertension) Status: Chronic Plan: - Home meds continued (4) DM (diabetes mellitus) Status: Chronic Plan: - OHA continued - Accu checks (5) Hyperlipidemia Status: Chronic Plan: - Home meds continued Problem Qualifiers (1) Primary localized osteoarthrosis, lower leg: Qualified Code: M17.11 - Primary localized osteoarthrosis, lower leg, right (2) DM (diabetes mellitus): Darien Montiel DO May 10, 2016 14:04
--- NOTE | 2016-05-17 08:40 | MD ---
cc: ALLI GOTTLIEB ADMISSION DATE: 05/07/2016 DISCHARGE DATE: 05/10/2016 ADMISSION DIAGNOSIS Severe degenerative osteoarthritis, right knee. DISCHARGE DIAGNOSIS Severe degenerative osteoarthritis, right knee. HISTORY OF PRESENT ILLNESS Mrs. Fenton is a 55-year-old female who presented to the orthopedic clinic of [place] for evaluation by Dr. Alli Gottlieb regarding her severe and progressive right knee pain. The patient states the pain is inhibiting her activities of daily living and her symptoms are aggravated by any type of weightbearing activity. She does have a history of a well-functioning left total knee arthroplasty. The patient states in regards to her right knee she has no alleviating factors at this point in time, although in the past she has tried medications, bracing, physical therapy, home exercise program and multiple corticosteroid injections without relief of symptoms. She does have x-ray evidence of severe degenerative osteoarthritis of the right knee. While in the office the patient was counseled on her diagnosis and treatment options, risks, benefits, indications were discussed. The patient did elect to proceed with surgical intervention to include a right total knee arthroplasty. DATE OF SURGERY: 05/07/2016, right total knee arthroplasty. HOSPITAL COURSE Postop after surgery the patient was admitted to [facility] where she received appropriate pain control, medical management, DVT prophylaxis as well as physical therapy. During the patient's hospital stay she was found to have MRSA infection from vaginal sores. She was started on IV vancomycin and will be discharged on oral doxycycline and Bactrim DS. DISCHARGE Once being discharged from the hospital the patient is cleared to go home where she will receive home health care and home physical therapy. She is in stable condition. She may weight-bear as tolerated. She has received daily dressing changes and has been instructed on proper wound care management. The patient has been provided prescriptions for pain control, DVT prophylaxis as well as antibiotics, doxycycline and Bactrim DS. She has been provided a follow-up appointment to see Dr. Alli Gottlieb in the office approximately 2 weeks from date of surgery. The patient has asked appropriate questions which have all been answered. The patient is cleared for discharge. Dictated by: ANTOINETTE Shelby MD ERIN Bridges/MIKAELA /8:17 AM /8:41 AM
--- NOTE | 2016-05-22 14:16 | MD ---
cc: ALLI GOTTLIEB ADMISSION DATE: 05/07/2016 DISCHARGE DATE: 05/10/2016 ADMITTING DIAGNOSIS Severe degenerative osteoarthritis, right knee. DISCHARGE DIAGNOSIS Severe degenerative osteoarthritis, right knee. HISTORY OF PRESENT ILLNESS Mrs. Fenton is a 55-year-old female who presented to the [facility] for evaluation by Dr. Alli Gottlieb regarding her progressive right knee pain. The patient states her right knee pain is a severe constant aching sensation aggravated by weightbearing activities and currently inhibiting her activities of daily living. She does have history of a well-functioning left total knee arthroplasty. Currently she states she has no alleviating factors for her right knee pain, although in the past she has tried medications, bracing, physical therapy, weight loss attempts, home exercise program and multiple injections without relief of symptoms. She does have x-ray evidence of severe degenerative osteoarthritis of the right knee. While in the office the patient was counseled on her diagnosis and treatment options. The risks, benefits and indications were all discussed in great detail. The patient did elect to proceed with surgical intervention to include a right total knee arthroplasty. Date of surgery 05/07/2016, right total knee arthroplasty. POST-OP After surgery the patient was admitted to [facility] where she received appropriate medical management, pain control, DVT prophylaxis as well as physical therapy. DISCHARGE Once being discharged from the hospital the patient is cleared to go home where she will receive home health care and home physical therapy. She is in stable condition. She may weight bear as tolerated. She is to receive daily dressing changes and has been instructed on proper wound care management. She has been provided prescriptions for pain control as well as DVT prophylaxis medication. She has also been provided a follow-up appointment to see Dr. Alli Gottlieb in the office in approximately two weeks from her date of surgery. The patient has asked appropriate questions which have been answered. The patient is cleared for discharge. Dictated by: Alli Sandoval PA-C MD ERIN Bridges/SHAWANDA /8:42 AM /2:15 PM
== END 2016-05-10 14:33 | disposition home health service (06) | DRG 470 ==
LOC: HSDI 05-07 05:06 → N06B 05-07 10:34 → N07B 05-09 00:13
PROVIDERS: ADMIT Orthopaedic Surgery Sports Medicine; ATTEND Orthopaedic Surgery Sports Medicine
PROC: 3E0T3CZ (ICD-10-PCS; 2016-05-07)
PROC: 0SRC0J9 Replacement of Right Knee Joint with Synthetic Substitute, Cemented, Open Approach (ICD-10-PCS; principal; 2016-05-07 06:52)
DX: M17.11 Unilateral primary osteoarthritis, right knee (principal); I10 Essential (primary) hypertension; E78.5 Hyperlipidemia, unspecified; G47.33 Obstructive sleep apnea (adult) (pediatric); E11.9 Type 2 diabetes mellitus without complications; M54.9 Dorsalgia, unspecified; G89.29 Other chronic pain; F32.9 Major depressive disorder, single episode, unspecified; Z86.14 Personal history of Methicillin resistant Staphylococcus aureus infection; Z79.84 Long term (current) use of oral hypoglycemic drugs
CPT/HCPCS: 73560; 76937; 80048; 82948; 85027; 86850; 86900; 86901; 87641; 94150; C1776; C9290; J0131; J0171; J0690; J0735; J1100; J1200; J1580; J1650; J1885; J2175; J2250; J2270; J2405; J2710; J2765; J2795; J3010; J3370; J7030; J7050; J7120; L1830